=== PATIENT | male | born 1995 | race Two or more races ===

== ENCOUNTER 2019-11-09 07:13 | Emergency (ER) | payer OTHER ==
[~2019-11-09] VITALS: Ht 175.3 cm; Wt 76.5 kg
[2019-11-09] MEDS ORDERED: LIDOCAINE 2% 5ML JELLY UROJET TOP ONE (07:30)
[2019-11-09] MEDS ORDERED: ONDANSETRON 4MG/2ML VIAL IV ONE (07:30)
[2019-11-09] MEDS ORDERED: PROMETHAZINE INJ 25 MG/ML VIAL (J2550) IM ONE (08:00)
--- NOTE | 2019-11-09 08:12 | REP ---
Portable chest: Single view. History: Cough. Comparison study: No comparison study. Findings: The lungs are symmetrically aerated and free of infiltrate. Pleural angles are sharp. The heart is not felt to be enlarged. Monitoring electrodes are seen. No bony abnormality is seen. Pulmonary vasculature is not increased. Impression: Negative portable chest x-ray. Electronically Signed by Oz Acosta MD 11/09/2019 08:03 A
[2019-11-09 08:22] LABS: AMPHETAMINES LEVEL URINE NEGATIVE (NEGATIVE); BARBITURATES URINE NEGATIVE (NEGATIVE); BENZODIAZEPINES URINE NEGATIVE (NEGATIVE); CANNABINOIDS URINE NEGATIVE (NEGATIVE); COCAINE METABOLITE URINE NEGATIVE (NEGATIVE); METHADONE URINE NEGATIVE (NEGATIVE); OPIATES URINE NEGATIVE (NEGATIVE); PHENCYCLIDINE URINE NEGATIVE (NEGATIVE)
[2019-11-09 09:24] LABS: BASO # 0.1 10^3/uL (0.0-0.2); BASO % 0.5 % (0.0-1.0); EOS % 0.1 % (0.0-3.0); HEMATOCRIT 47.4 % (42.0-52.0); HEMOGLOBIN 15.9 g/dl (13.5-17.5); LYMPH # 1.3 10^3/uL (1.5-5.0); LYMPH % 14.3 % (24.0-44.0); MEAN CORPUSCULAR HEMOGLOBIN 28.2 pg (27.0-33.0); MEAN CORPUSCULAR HGB CONC 33.5 g/dl (32.0-36.5); MEAN CORPUSCULAR VOLUME 84.2 fl (80.0-96.0); MONO # 0.7 10^3/uL (0.0-0.8); NEUTROPHILS # 7.2 10^3/uL (1.5-8.5); NEUTROPHILS % 77.6 % (36.0-66.0); PLATELET COUNT, AUTOMATED 297 10^3/uL (150-450); RED BLOOD COUNT 5.63 10^6/uL (4.30-6.10); WHITE BLOOD COUNT 9.3 10^3/uL (4.0-10.0)
[2019-11-09] MEDS ORDERED: NS 1,000 ML IV ONE ×2 (09:30→11:15)
[2019-11-09 10:20] LABS: ACETAMINOPHEN LEVEL < 2.0 UG/ML (10.0-30.0); ALBUMIN 4.5 GM/DL (3.2-5.2); ALT/SGPT 31 U/L (12-78); BILIRUBIN,DIRECT < 0.1 MG/DL (0.0-0.2); BILIRUBIN,TOTAL 0.3 MG/DL (0.2-1.0); CK-MB VALUE MASS < 1.0 NG/ML (<3.6); CPK CREATINE PHOSPHOKINASE 1268 U/L (39-308); ETHYL ALCOHOL (ETHANOL) < 0.003 % (0.000-0.010); MB/CK RELATIVE INDEX 0.08 (< OR =4); SALICYLATE LEVEL < 1.7 MG/DL (5.0-30.0); TOTAL PROTEIN 7.7 GM/DL (6.4-8.2); TROPONIN I < 0.02 NG/ML (< 0.10)
[2019-11-09 14:00] VITALS: BP 124/64
--- NOTE | 2019-11-09 22:05 | ECGEPIP ---
[facility] - ED Test Date: 2019-11-09 Pat Name: JAMAR TOMPKINS Department: Room: - Gender: Male Stoner Hand: leandra : 1995 Requested By: Fred Muro Order Number: [id number] Reading MD: Fred Seymour Measurements Intervals [place] Rate: 104 P: 62 CT: 160 QRS: 65 QRSD: 110 T: 5 QT: 334 QTc: 440 Interpretive Statements SINUS TACHYCARDIA NONSPECIFIC ST & T-WAVE ABNORMALITY NO PRIORS FOR COMPARISON Electronically Signed on 11-09-2019 22:05:04 EDT by Fred Seymour
== END 2019-11-09 13:59 | disposition home or self-care (01) ==
LOC: M ED 07:13
DX: F18.10 Inhalant abuse, uncomplicated (principal); M62.82 Rhabdomyolysis; R00.0 Tachycardia, unspecified; Z78.1 Physical restraint status; R41.82 Altered mental status, unspecified
CPT/HCPCS: 36415; 36600; 51701; 71045; 80047; 80076; 80307; 82550; 82553; 82803; 83605; 84484; 85025; 87040; 87486; 87581; 87633; 87798; 93005; 93041; 94760; 96361; 96374; 99285; G0480; J2405